=== PATIENT | male | born 1995 | race African-American/Black ===

== ENCOUNTER 2017-02-14 06:45 | Emergency (ER) | payer MEDICAID ==
[~2017-02-14] VITALS: Ht 157.5 cm; Wt 75.0 kg
[2017-02-14 08:20] LABS: HEMATOCRIT. 50.6 % (42.0-52.0); HEMOGLOBIN. 16.8 g/dL (14.0-18.0); MEAN CORPUSCULAR HEMOGLOBIN 26.9 pg (28.0-32.0); MEAN CORPUSCULAR HGB CONC 33.2 g/dL (31.0-37.0); MEAN CORPUSCULAR VOLUME 81.1 fL (80.0-94.0); MEAN PLATELET VOLUME 7.7 fl (7.4-10.4); PLATELET 299 x1000/uL (130-400); RED BLOOD CELL COUNT 6.24 mill/uL (4.7-6.1); RED CELL DISTRIBUTION WIDTH 15.3 % (11.6-14.6); WHITE BLOOD COUNT 10.1 x1000/uL (4.5-11.0)
[2017-02-14] MEDS ORDERED: KETOROLAC 30MG/ML VIAL IV STA (08:21)
[2017-02-14] MEDS ORDERED: SODIUM CHLORIDE 0.9% 1,000 ML IV ONE (08:21)
[2017-02-14 08:24] LABS: DIFFERENTIAL COMMENT 1
[2017-02-14 08:29] LABS: INR 1.2; PROTHROMBIN TIME 12.5 sec
[2017-02-14] MEDS ORDERED: CLINDAMYCIN 600 MG in DEXTROSE 5% WATER 50 ML IV ONE (08:30)
[2017-02-14 08:35] LABS: ALANINE AMINOTRANSFERASE 14 IU/L (13-61); ALBUMIN 4.1 g/dL (3.4-5.0); ANION GAP 12; CALCIUM 9.6 mg/dL (8.5-10.1); CARBON DIOXIDE 32 mEq/L (21-32); CHLORIDE 97 mEq/L (98-107); INDEX HEMOLYSI 3 (1-3); INDEX ICTERIC 1 (1-4); INDEX LIPEMIC 1 (1-3); UREA NITROGEN BLOOD 13 mg/dL (7-21); eGFR > 60 mL/min (>60)
[2017-02-14 08:40] LABS: ANISOCYTOSIS 1+; PLATELET ESTIMATE NORMAL
[2017-02-14 08:51] LABS: GLUCOSE URINE NEGATIVE (NEGATIVE); KETONES URINE NEGATIVE (NEGATIVE); LEUKOCYTE ESTERASE URINE NEGATIVE (NEGATIVE); NITRITE URINE NEGATIVE (NEGATIVE); OCCULT BLOOD URINE NEGATIVE (NEGATIVE); PROTEIN URINE 1+ (NEGATIVE); SPECIFIC GRAVITY URINE 1.036 (1.005-1.030)
[2017-02-14 08:56] LABS: CLARITY URINE CLEAR (CLEAR); COLOR URINE DARK YELLOW (YELLOW)
[2017-02-14 09:05] LABS: RBC URINE NONE SEEN /hpf (0-2); SQUAMOUS EPITHELIAL CELL URINE FEW /lpf (RARE/1+)
[2017-02-14 09:06] LABS: BACTERIA URINE NONE SEEN; MUCUS URINE 2+ /lpf (NONE/TRACE)
[2017-02-14] MEDS ORDERED: SODIUM CHLORIDE 0.9% 10ML VIAL ONE (09:09)
[2017-02-14] MEDS ORDERED: IOHEXOL-300 100 ML BOTTLE ONE (09:09)
[2017-02-14 10:47] LABS: MONOTEST NEGATIVE (NEGATIVE)
[2017-02-14] MEDS ORDERED: DEXAMETHASONE 10MG/ML 1ML VIAL IV ONE (11:30)
[2017-02-14 11:53] VITALS: BP 119/65
== END 2017-02-14 13:30 | disposition short-term general hospital (02) ==
LOC: ER 06:45
DX: J36 Peritonsillar abscess (principal); J02.9 Acute pharyngitis, unspecified; R04.2 Hemoptysis; F17.210 Nicotine dependence, cigarettes, uncomplicated; F12.10 Cannabis abuse, uncomplicated
CPT/HCPCS: 36415; 70491; 80053; 81001; 85025; 85610; 85730; 86308; 87070; 87086; 87430; 96365; 96375; 99285; A4216; J1100; J1885; J3490; J7030; Q9967; Z7610; J7060

== ENCOUNTER 2021-05-04 15:51 | Emergency (ER) | payer MEDICAID ==
[~2021-05-04] VITALS: Ht 177.8 cm; Wt 68.0 kg
[2021-05-04] MEDS ORDERED: IBUPROFEN 600MG TABLET PO ONE (17:00)
[2021-05-04] MEDS ORDERED: AMOX-494 MT (17:01)
[2021-05-04] MEDS ORDERED: IBUP-2028 MT (17:01)
[2021-05-04 17:04] VITALS: BP 132/79
== END 2021-05-04 17:13 | disposition home or self-care (01) ==
LOC: ER 15:51
DX: J03.90 Acute tonsillitis, unspecified (principal); F12.10 Cannabis abuse, uncomplicated
CPT/HCPCS: 99283

== ENCOUNTER 2021-05-10 15:57 | Emergency (ER) | payer MEDICAID, SELFPAY ==
[~2021-05-10] VITALS: Ht 177.8 cm; Wt 68.0 kg
[~2021-05-10 15:57] MED LIST: AMOX-494 MT; IBUP-2028 MT
[2021-05-10] MEDS ORDERED: IBUPROFEN 600MG TABLET PO ONE (16:45)
[2021-05-10 17:14] VITALS: BP 121/70
== END 2021-05-10 17:40 | disposition home or self-care (01) ==
LOC: ER 15:57
DX: U07.1 COVID-19 (principal)
CPT/HCPCS: 99283; C9803; U0003; U0005